=== PATIENT | female | born 1960 | race Caucasian/White ===

== ENCOUNTER → 2018-02-23 | Outpatient (CLI) | payer OTHER, SELFPAY ==
[~2018-02-23] MED LIST: IBUP800 PO; Percocet 5-3251 EACH; Percocet 5-3251 EACH PO
== END | disposition home or self-care (01) ==
LOC: LAB SHORT 15:37 → LAB 15:37
PROVIDERS: Obstetrics & Gynecology
DX: R87.623 High grade squamous intraepithelial lesion on cytologic smear of vagina (HGSIL) (principal); R87.811 Vaginal high risk human papillomavirus (HPV) DNA test positive
CPT/HCPCS: 87624; 88142

== ENCOUNTER → 2019-01-31 | Outpatient (CLI) | payer OTHER ==
[2019-02-02 16:07] LABS: HPV 16 Negative (Negative); HPV 18 Negative (Negative); HPV OTHER HR TYPES Negative (Negative)
== END | disposition home or self-care (01) ==
LOC: LAB 16:06 → LAB SHORT 16:06
PROVIDERS: Obstetrics & Gynecology
DX: N89.3 Dysplasia of vagina, unspecified (principal)
CPT/HCPCS: 87624; 88142

== ENCOUNTER → 2019-07-14 | Outpatient (CLI) | payer OTHER ==
[2019-07-18 15:07] LABS: HPV 16 Negative (Negative); HPV 18 Negative (Negative); HPV OTHER HR TYPES Negative (Negative)
== END | disposition home or self-care (01) ==
LOC: LAB SHORT 16:02 → LAB 16:02
PROVIDERS: Obstetrics & Gynecology
DX: R87.610 Atypical squamous cells of undetermined significance on cytologic smear of cervix (ASC-US) (principal)
CPT/HCPCS: 87624; 88142

== ENCOUNTER → 2019-07-26 | Outpatient (CLI) | payer OTHER | END | disposition home or self-care (01) | LOC: LAB SHORT 09:04 → LAB 09:04 | PROVIDERS: Obstetrics & Gynecology | DX: D06.9 Carcinoma in situ of cervix, unspecified (principal); N89.3 Dysplasia of vagina, unspecified | CPT/HCPCS: 88142 ==